=== PATIENT | male | born 1955 | race Caucasian/White ===

== ENCOUNTER 2020-09-07 11:53 | Emergency (ER) | payer MEDICARE, OTHER ==
[~2020-09-07] VITALS: Ht 154.9 cm; Wt 59.9 kg
[~2020-09-07 11:53] MED LIST: AUGMENTIN 875-1 EACH PO; DELSYM30 MG/5 ML PO; LAXATIVE SUPPO1 EACH PR; VENTOLIN HFA 66.7 GM INH; ZITHROMAX250 MG PO
[2020-09-07 13:18] LABS: RED BLOOD COUNT 2.95 M/UL (4.20-5.50); WHITE BLOOD COUNT 12.5 K/UL (4.5-11.0)
== END 2020-09-07 20:47 | disposition short-term general hospital (02) ==
LOC: ER1 11:53
PROVIDERS: Physician Assistant Medical
DX: K52.9 Noninfective gastroenteritis and colitis, unspecified (principal); K20.90 Esophagitis, unspecified without bleeding; K92.2 Gastrointestinal hemorrhage, unspecified; D64.9 Anemia, unspecified; Z88.0 Allergy status to penicillin; Z20.822 Contact with and (suspected) exposure to COVID-19
CPT/HCPCS: 36430; 36600; 71045; 80053; 82272; 82803; 83605; 85025; 85610; 86850; 86900; 86901; 86920; 87040; 96374; 96375; 96376; 99284; C9113; J2405; P9016; Q9967; U0002

== ENCOUNTER → 2020-10-21 | Outpatient (CLI) | payer MEDICARE, OTHER ==
[2020-10-23 14:14] LABS: HEMATOCRIT 38.6 % (37.5-51.0)
== END | disposition home or self-care (01) ==
LOC: MO 12:49
PROVIDERS: Internal Medicine Hematology & Oncology
DX: D50.9 Iron deficiency anemia, unspecified (principal); Z79.899 Other long term (current) drug therapy; Z88.0 Allergy status to penicillin
CPT/HCPCS: 82607; 82728; 82747; 83540; 83550; 83615; 83921; G0463

== ENCOUNTER → 2020-11-28 | Outpatient (CLI) | payer MEDICARE, OTHER | LOC: RAD 12:47 | DX: R05.9 Cough, unspecified (principal); R91.8 Other nonspecific abnormal finding of lung field | CPT/HCPCS: 71046 ==

== ENCOUNTER → 2020-12-12 | Day surgery (SDC) | payer MEDICARE, OTHER ==
[~2020-12-12] MED LIST changes: +ADULT GLYCERIN1 EACH PR; +CELEXA40 MG PO; +CLARITIN10 M2 PO; +COLACE CLEAR50 MG PO; +DESYREL 50 MG T50 MG PO; +DITROPAN 5 MG TA5 MG PO; +FLOMAX0.4 MG PO; +IMODIUM A-1 MG/7.5 M PO; +MIRALAX17 GM PO; +MUCINEX DM ER1 EACH PO; +PROTONIX40 MG PO; +RISPERDAL1 MG PO; +SIMVASTATIN10 MG PO; +ZOFRAN4 MG PO
== END | disposition home or self-care (01) ==
LOC: OR 07:30
DX: K64.1 Second degree hemorrhoids (principal); K62.89 Other specified diseases of anus and rectum; D50.0 Iron deficiency anemia secondary to blood loss (chronic); K21.00 Gastro-esophageal reflux disease with esophagitis, without bleeding; F84.0 Autistic disorder; G40.909 Epilepsy, unspecified, not intractable, without status epilepticus; E78.5 Hyperlipidemia, unspecified; H54.7 Unspecified visual loss; Z79.899 Other long term (current) drug therapy; Z88.0 Allergy status to penicillin; Z88.8 Allergy status to other drugs, medicaments and biological substances; Z20.822 Contact with and (suspected) exposure to COVID-19
CPT/HCPCS: J2704; J7040

== ENCOUNTER 2020-12-23 08:04 | Emergency (ER) | payer MEDICARE, OTHER ==
[~2020-12-23 08:04] MED LIST changes: -MUCINEX DM ER1 EACH PO
[2020-12-23 08:37] LABS: HEMOGLOBIN 12.4 gm/dl (14.0-17.5); RED BLOOD COUNT 4.37 M/UL (4.20-5.50); WHITE BLOOD COUNT 5.2 K/UL (4.5-11.0)
[2020-12-23 08:55] LABS: BUN/CREATININE RATIO 12 (0-10)
[2020-12-23] MEDS ORDERED: MUCINEX DM ER1 EACH PO (10:41)
== END 2020-12-23 10:53 | disposition home or self-care (01) ==
LOC: ER1 08:04
PROVIDERS: Physician Assistant
DX: J20.9 Acute bronchitis, unspecified (principal); R63.0 Anorexia; Z88.0 Allergy status to penicillin; Z20.822 Contact with and (suspected) exposure to COVID-19; Z88.6 Allergy status to analgesic agent
CPT/HCPCS: 71045; 80053; 85025; 99284; U0002

== ENCOUNTER 2021-07-24 19:14 | Emergency (ER) | payer MEDICARE, OTHER ==
[~2021-07-24 19:14] MED LIST changes: -ZOFRAN ODT 4 MG4 MG SL
[2021-07-24 20:58] LABS: HEMOGLOBIN 13.7 gm/dl (14.0-17.5); RED BLOOD COUNT 4.81 M/UL (4.20-5.50); WHITE BLOOD COUNT 8.4 K/UL (4.5-11.0)
[2021-07-24 21:21] LABS: BUN/CREATININE RATIO 18 (0-10)
[2021-07-24] MEDS ORDERED: ZOFRAN ODT 4 MG4 MG SL (23:03)
== END 2021-07-24 23:15 | disposition home or self-care (01) ==
LOC: ER1 19:14
PROVIDERS: Physician Assistant Medical
DX: R11.2 Nausea with vomiting, unspecified (principal); R19.7 Diarrhea, unspecified; G40.909 Epilepsy, unspecified, not intractable, without status epilepticus; Z88.0 Allergy status to penicillin; Z20.822 Contact with and (suspected) exposure to COVID-19
CPT/HCPCS: 0240U; 71045; 80053; 85025; 99284; J2405

== ENCOUNTER → 2021-07-24 | Outpatient (CLI) | payer MEDICARE, OTHER ==
[~2021-07-24] MED LIST changes: +MUCINEX DM ER1 EACH PO; +ZOFRAN ODT 4 MG4 MG SL
[2021-07-24 16:31] LABS: HEMOGLOBIN 14.6 gm/dl (14.0-17.5); RED BLOOD COUNT 5.09 M/UL (4.20-5.50)
[2021-07-24 16:49] LABS: BUN/CREATININE RATIO 15 (0-10)
== END ==
LOC: LAB 15:59
PROVIDERS: Nurse Practitioner Primary Care
DX: E78.5 Hyperlipidemia, unspecified (principal); D64.9 Anemia, unspecified; R94.5 Abnormal results of liver function studies; D50.9 Iron deficiency anemia, unspecified; E64.2 Sequelae of vitamin C deficiency
CPT/HCPCS: 36415; 80053; 81001; 85025

== ENCOUNTER → 2021-10-14 | Outpatient (CLI) | payer MEDICARE, OTHER ==
[~2021-10-14] MED LIST changes: +ZOFRAN ODT 4 MG4 MG SL
== END ==
LOC: RAD 10:27
DX: J20.9 Acute bronchitis, unspecified (principal); R05.9 Cough, unspecified
CPT/HCPCS: 71046